=== PATIENT | female | born 1940 | race Caucasian/White ===

== ENCOUNTER 2017-02-14 08:02 | Day surgery (SDC) | payer MEDICARE, BC ==
--- NOTE | ~2017-02-14 | EGD ---
EGD REPORT [facility] [address] [address] NAME: RACHEAL LARRY : [birth year] STATUS : REG [facility]#: [id number] AGE: 76 ADM/REG DATE : 02/14/17 MR#: [id number] REPORT SERV DATE: 02/14/17 DICTATED BY: JEFE FLAHERTY DATE: 02/14/17 REPORT STATUS : Draft TRANSCRIBED BY: [facility] DATE: 02/14/17 Endoscopy Center Patient Name: Racheal Larry Date of : 1940 Attending MD: JEFE FLAHERTY MD Procedure Date No Time: 02/14/2017 Procedure: Colonoscopy Indications: Colon cancer screening in patient at increased risk: Family history of colon polyps Referring MD: TREE PETERS Medicines: as per anesthesia Complications: No immediate complications. Procedure: Pre-Anesthesia Assessment: - ASA Grade Assessment: III - A patient with severe systemic disease. After I obtained informed consent, the scope was passed under direct vision. Throughout the procedure, the patient's blood pressure, pulse, and oxygen saturations were monitored continuously. The [facility] [id number] was introduced through the anus and advanced to the cecum, identified by appendiceal orifice and ileocecal valve. The colonoscopy was performed without difficulty. The patient tolerated the procedure. The quality of the bowel preparation was fair. Findings: The perianal and digital rectal examinations were normal. Internal hemorrhoids were found during endoscopy and were mild. Impression: - Internal hemorrhoids. Recommendation: - Continue present medications. Procedure Code(s): --- Professional --- 17280, Colonoscopy, flexible, proximal to splenic flexure; diagnostic, with or without collection of specimen(s) by brushing or washing, with or without colon decompression (separate procedure) Diagnosis Code(s): --- Professional --- K64.8, Other hemorrhoids Z12.11, Encounter for screening for malignant neoplasm of colon Z83.71, Family history of colonic polyps EGD REPORT [facility] [address] [address] NAME: RACHEAL LARRY : [birth year] STATUS : REG [facility] PAT#: [id number] AGE: 76 ADM/REG DATE : 02/14/17 MR#: [id number] REPORT SERV DATE: 02/14/17 DICTATED BY: JEFE FLAHERTY. DATE: 02/14/17 REPORT STATUS : Draft TRANSCRIBED BY: [employer] DATE: 02/14/17 CPT copyright 2013 [employer]. All rights reserved. The codes documented in this report are preliminary and upon utilization coordinator review may be revised to meet current compliance requirements. JEFE FLAHERTY MD 02/14/2017 11:20 AM This report has been signed electronically. Number of Addenda: 0 Note Initiated On: 02/14/2017 10:36 AM Scope Withdrawal Time 0 hours 8 minutes 11 seconds [address] [address]
--- NOTE | ~2017-02-14 | EGD ---
EGD REPORT [facility] [address] [address] NAME: RACHEAL LARRY : [birth year] STATUS : REG [facility]#: [id number] AGE: 76 ADM/REG DATE : 02/14/17 MR#: [id number] REPORT SERV DATE: 02/14/17 DICTATED BY: JEFE FLAHERTY DATE: 02/14/17 REPORT STATUS : Draft TRANSCRIBED BY: [facility] DATE: 02/14/17 Endoscopy Center Patient Name: Racheal Larry Date of : 1940 Attending MD: JEFE FLAHERTY MD Procedure Date No Time: 02/14/2017 Procedure: Upper GI endoscopy Indications: Dysphagia Referring MD: TREE PETERS Medicines: as per anesthesia Complications: No immediate complications. Procedure: Pre-Anesthesia Assessment: - ASA Grade Assessment: III - A patient with severe systemic disease. After obtaining informed consent, the endoscope was passed under direct vision. Throughout the procedure, the patient's blood pressure, pulse, and oxygen saturations were monitored continuously. The [facility] H190 [id number] was introduced through the mouth, and advanced to the third part of duodenum. The upper GI endoscopy was accomplished without difficulty. The patient tolerated the procedure. Findings: The examined esophagus was normal. The scope was withdrawn. Dilation was performed with a Delgadillo dilator with no resistance at 44 Fr. The entire examined stomach was normal. The cardia and gastric fundus were normal on retroflexion. The examined duodenum was normal. Impression: - Normal esophagus. Dilated. - Normal stomach. - Normal examined duodenum. Recommendation: - Continue present medications. Procedure Code(s): --- Professional --- 24560, Esophagogastroduodenoscopy, flexible, transoral; diagnostic, including collection of specimen(s) by brushing or washing, when performed (separate procedure) 29762, Dilation of esophagus, by unguided sound or bougie, single or multiple passes Diagnosis Code(s): --- Professional --- R13.10, Dysphagia, unspecified EGD REPORT [facility] [address] [place]. [address] NAME: RACHEAL LARRY : 36 STATUS : REG [facility]#: [id number] AGE: 76 ADM/REG DATE : 02/14/17 MR#: [id number] REPORT SERV DATE: 02/14/17 DICTATED BY: JEFE FLAHERTY DATE: 02/14/17 REPORT STATUS : Draft TRANSCRIBED BY: [employer] DATE: 02/14/17 CPT copyright 2013 [employer]. All rights reserved. The codes documented in this report are preliminary and upon intelligence analyst review may be revised to meet current compliance requirements. JEFE FLAHERTY MD 02/14/2017 10:59 AM This report has been signed electronically. Number of Addenda: 0 Note Initiated On: 02/14/2017 10:35 AM Scope Withdrawal Time 0 hours 0 minutes 0 seconds [address] [place] [address]
[~2017-02-14 08:02] MED LIST: ALEVE220 MG PO; ASAB PO; BAC PO; C25 PO; CYANO1000T PO; HCTZ50B PO; HYDROCHLOROT50 MG PO; K-TABS10 MEQ PO; KDUR10 PO; LIPITOR40 PO; LOP25 PO; MOBIC15 MG PO; NEUR600 PO; NORV25 PO; PCET PO; PLAVIX PO; PRIN10 PO; TYLENOL 8 HR650 MG PO; ULTRAM50 PO; VESICARE5 PO; VITAMIN B-121000 MC1 SL
== END 2017-02-14 23:59 | disposition home or self-care (01) ==
LOC: DMU 08:02
PROVIDERS: Internal Medicine Gastroenterology
PROC: 0DJD8ZZ Inspection of Lower Intestinal Tract, Via Natural or Artificial Opening Endoscopic (ICD-10-PCS; principal; 2017-02-14 09:30)
PROC: 0D750ZZ Dilation of Esophagus, Open Approach (ICD-10-PCS; 2017-02-14 09:30)
PROC: 0DJ08ZZ Inspection of Upper Intestinal Tract, Via Natural or Artificial Opening Endoscopic (ICD-10-PCS; 2017-02-14 09:30)
DX: Z12.11 Encounter for screening for malignant neoplasm of colon (principal); K21.9 Gastro-esophageal reflux disease without esophagitis; K64.8 Other hemorrhoids; E78.00 Pure hypercholesterolemia, unspecified; I25.10 Atherosclerotic heart disease of native coronary artery without angina pectoris; I10 Essential (primary) hypertension; J45.909 Unspecified asthma, uncomplicated; M19.90 Unspecified osteoarthritis, unspecified site; Z83.71 Family history of colonic polyps; Z95.5 Presence of coronary angioplasty implant and graft; Z90.89 Acquired absence of other organs; Z90.49 Acquired absence of other specified parts of digestive tract; Z90.710 Acquired absence of both cervix and uterus
CPT/HCPCS: 43235; 43450; G0105